=== PATIENT | male | born 1990 | race Caucasian/White ===

== ENCOUNTER 2019-08-15 18:53 | Emergency (ER) | payer MEDICAID ==
[~2019-08-15] VITALS: Ht 182.9 cm; Wt 90.7 kg
--- NOTE | 2019-08-15 18:53 | NUR ---
BIBA BLS TAKEN TO BED 4
[2019-08-15] MEDS: LORazepam 2 MG/ML VIAL IM ONE (19:13)
[2019-08-15] MEDS: HALOPERIDOL IM 5 MG/ML VIAL IM ONE (19:13)
--- NOTE | 2019-08-15 19:18 | NUR ---
Pt report given to SANTOS SIMPSON. Transfer of care at this time.
--- NOTE | 2019-08-15 19:18 | NUR ---
Pt report RECEIVED FROM SANTOS SALAS. Transfer of care at this time.
--- NOTE | 2019-08-15 19:25 | NUR ---
AT BEDSIDE EXAMINING PT
--- NOTE | 2019-08-15 19:30 | NUR ---
PT BIB AMBULANCE FOR EVAL S/P FALL WITH HEAD INJURY; CAREGIVER STATES PT FELL BACKWARD AND HIT HIS HEAD AND HAS A HEAD LAC; PER CAREGIVER PT IS AT BASELINE FOR PT; UNABLE TO OBTAIN ANY OTHER INFORMATION FROM CAREGIVER HX: SEIZURES/DEVELOPMENTAL DELAY ALLERGEDEN NGUYEN
--- NOTE | 2019-08-15 19:40 | NUR ---
Patient discharged BY with v/s stable. Written and verbal after care instructions given and explained BY . CAREGIVERverbalized understanding. Wheel Chair Assisted with by caregiver. All questions addressed prior to discharge BY . Advised to follow up with PMD BY .
[2019-08-15 20:16] VITALS: BP 128/78
== END 2019-08-15 19:40 | disposition home or self-care (01) ==
LOC: EDBD 18:53 → MED 18:53
DX: S01.01XA Laceration without foreign body of scalp, initial encounter (principal); W19.XXXA Unspecified fall, initial encounter; Y93.89 Activity, other specified; Y92.89 Other specified places as the place of occurrence of the external cause; Y99.8 Other external cause status
CPT/HCPCS: 12001; 96372; 99284; J1630; J2060

== ENCOUNTER 2020-11-28 11:22 | Emergency (ER) | payer MEDICAID ==
[~2020-11-28] VITALS: Ht 185.4 cm; Wt 69.5 kg
[2020-11-28 11:51] VITALS: BP 135/58
--- NOTE | 2020-11-28 12:04 | NUR ---
PT BIB CAREGIVER VIA W/C C/O STAPLE REMOVAL TO BACK OF HEAD S/P FALL 2 WEEKS AGO PT WAS SEEN AT [facility]
--- NOTE | 2020-11-28 12:04 | NUR ---
PT BIB CAREGIVER VIA W/C C/O STAPLE REMOVAL S/P FALL 2 WEEKS AGO PT WAS SEEN AT [facility]
[2020-11-28 12:20] VITALS: BP 135/58
--- NOTE | 2020-11-28 12:20 | NUR ---
Patient discharged with v/s stable. Written and verbal after care instructions given and explained. Patient alert, oriented and verbalized understanding of instructions. Ambulatory with steady gait. All questions addressed prior to discharge. ID band removed. Patient advised to follow up with PMD. Opportunity to ask questions provided and answered.
== END 2020-11-28 12:20 | disposition home or self-care (01) ==
LOC: MED 11:22
DX: S01.01XD Laceration without foreign body of scalp, subsequent encounter (principal); X58.XXXD Exposure to other specified factors, subsequent encounter
CPT/HCPCS: 99281

== ENCOUNTER 2021-01-08 10:39 | Emergency (ER) | payer MEDICAID ==
[~2021-01-08] VITALS: Ht 182.9 cm; Wt 69.4 kg
[2021-01-08 10:41] VITALS: BP 156/78
--- NOTE | 2021-01-08 10:48 | NUR ---
PT W/C ASSISTED TO BED 11.
--- NOTE | 2021-01-08 10:59 | NUR ---
30 Y/O MALE BROUGHT IN BY CARE GIVERS, PT RESIDES IN NURSING CARE FACILITY. C/O "BUMP" ON RIGHT BUTTOCK. AREA IS RAISED WITH NO REDNESS, SKIN INTACT. PT HAS AUTISM AND IS UNABLE TO VERBALIZE IF ANY DISCOMFORT. REPORT GIVEN BY CARE GIVERS WHO NOTICED THE "BUMP" X1 WEEK AGO. PT IS ABLE TO SELF AMBULATE WITH GUIDANCE. PT MOVED TO BED BY CARE GIVERS AND PT IS LAYING COMFORTABLY IN BED WITH RAILS UP X2 AND IN LOWEST SETTING. HX: MODERATE MENTAL RETARDATION, AUTISM, EPILEPSY, SCOLIOSIS, INSOMNIA, AGGRESSIVE BEHAVIOR DISORDER, AND IMPULSIVE CONTROL DISORDER, MODERATE MENTAL RETARDATION. NKDA MEDS: SEE LIST
--- NOTE | 2021-01-08 11:34 | NUR ---
DOCTOR AT BEDSIDE Addendum: 01/08/21 at 1138 by [email or web address] DOCTOR AT BEDSIDE PERFORMING ULTRASOUND
--- NOTE | 2021-01-08 11:38 | NUR ---
BEDSIDE PERFORMING US ON PATIENT WOUND
--- NOTE | 2021-01-08 12:00 | NUR ---
Patient discharged with v/s stable. Written and verbal after care instructions given TO CARE GIVERS and explained. CARE GIVERS verbalized understanding. Ambulatory with steady gait. All questions addressed prior to discharge. Advised to follow up with PMD.
== END 2021-01-08 12:00 | disposition home or self-care (01) ==
LOC: MED 10:39
DX: D49.89 Neoplasm of unspecified behavior of other specified sites (principal); G40.909 Epilepsy, unspecified, not intractable, without status epilepticus; F84.0 Autistic disorder
CPT/HCPCS: 99284

== ENCOUNTER 2021-03-24 15:29 | Emergency (ER) | payer MEDICAID ==
[~2021-03-24] VITALS: Ht 167.6 cm; Wt 65.8 kg
[2021-03-24 15:45] VITALS: BP 137/78
--- NOTE | 2021-03-24 15:45 | NUR ---
SEIZURE PADS APPLIED PER ORDER
--- NOTE | 2021-03-24 15:45 | NUR ---
30 Y/O MALE BIBA FOR C/O POSS SEIZURE ACTIVITY. PT RESIDES IN A FACILITY AND WAS NOTED WITH AN UPWARD GAZE AND UNRESPONSIVENESS THIS MORNING. PT IS NON-VERBAL AT BEDSIDE AND UNABLE TO MAKE NEEDS KNOWN. PMHX: EPILEPSY HOME MEDS: Keppra and Trileptal. Risperdal, Seroquel, Gabapentin, Ativan, Trazodone, Haldol.
--- NOTE | 2021-03-24 15:45 | NUR ---
PT TO ER BED 4 VIA CARE AND LA/FD
[2021-03-24] MEDS ORDERED: ACETAMINOPHEN 325 MG SUPP RC ONE (15:59)
[2021-03-24] MEDS ORDERED: ACETAMINOPHEN 650 MG SUPP RC ONE (16:00)
--- NOTE | 2021-03-24 16:00 | NUR ---
TEMP 102.4 MADE APRIL WOMACK AWARE, NEW ORDERS NOTED AND CARRIED OUT. ALL COOLING MEASURES IN PLACE.
[2021-03-24] MEDS ORDERED: LORazepam 2 MG/ML VIAL ONE (16:23)
[2021-03-24] MEDS ORDERED: LORazepam 2 MG/ML VIAL IVP ONE (16:25)
--- NOTE | 2021-03-24 16:25 | NUR ---
PT IS TAKING OFF MEDICAL DEVICES AND ATTEMPTING TO CRAWL OVER SR, ERMD MADE AWARE AND ORDERS NOTED AND CARRIED OUT
[2021-03-24 16:28] LABS: BASOPHILS % (AUTO) 0.4 % (0.0-2.0); HEMATOCRIT 38.8 % (36-52); HEMOGLOBIN 13.2 g/dL (12.0-18.0); LYMPHOCYTES # (AUTO) 1.1 K/uL (2.0-11.5); LYMPHOCYTES % (AUTO) 11.4 % (20.5-51.1); MEAN CORPUSCULAR HEMOGLOBIN 29 pg (27-31); MEAN CORPUSCULAR HGB CONC 34 g/dL (33-37); MEAN CORPUSCULAR VOLUME 85.3 fL (80-94); MONOCYTES # (AUTO) 0.5 K/uL (0.8-1.0); MONOCYTES % (AUTO) 5.6 % (1.7-9.3); NEUTROPHILS # (AUTO) 7.7 K/uL (1.8-7.7); NEUTROPHILS % (AUTO) 82.6 % (42.2-75.2); PLATELET COUNT (AUTO) 302 K/uL (140-450); RED BLOOD CELL COUNT(AUTO) 4.55 MIL/uL (4.20-6.10); RED CELL DISTRIBUTION WIDTH 13.6 % (11.6-13.7); WHITE BLOOD COUNT (AUTO) 9.3 K/uL (4.8-10.8)
--- NOTE | 2021-03-24 16:30 | NUR ---
Physician order given to place SOFT BILAT WRIST RESTRAINTS type restraints to prevent HARM TO PT AND REMOVAL OF MEDICAL DEVICES. All other measures to keep pt are unsuccessful at this time. Restraints placed with quick-release ties to bed frame. Pt under observation per hospital policy. Circulation intact bilat and skin under restraints is intact.
--- NOTE | 2021-03-24 16:30 | NUR ---
TEMP 100.2 AT THIS TIME. APRIL WOMACK MADE AWARE
[2021-03-24 16:47] LABS: CARBON DIOXIDE 26.6 mmol/L (21-32); CREATININE 0.8 mg/dL (0.6-1.3); POTASSIUM 3.6 mmol/L (3.5-5.1)
[2021-03-24] MEDS ORDERED: diphenhydrAMINE 50 MG/ML VIAL ONE (16:58)
[2021-03-24] MEDS ORDERED: diphenhydrAMINE 50 MG/ML VIAL IVP ONE (17:00)
--- NOTE | 2021-03-24 17:00 | NUR ---
TEMP HAS DECREASED TO 99.1 AT THIS TIME
[2021-03-24 17:25] VITALS: BP 124/72
--- NOTE | 2021-03-24 17:25 | NUR ---
Patient discharged with v/s stable. Written and verbal after care instructions given and explained. Mother verbalized understanding. Wheel Chair Assisted with to car. All questions addressed prior to discharge. Advised to follow up with PMD.
== END 2021-03-24 18:00 | disposition home or self-care (01) ==
LOC: MED 15:29
DX: R56.9 Unspecified convulsions (principal)
CPT/HCPCS: 36415; 80048; 83605; 85025; 87040; 96374; 96375; 99284; J1200; J2060